=== PATIENT | female | born 1990 | race Two or more races ===

== ENCOUNTER 2017-04-04 13:02 | Emergency (ER) | payer SELFPAY ==
[~2017-04-04] VITALS: Ht 160 cm; Wt 90.7 kg
[2017-04-04 13:21] VITALS: BP 153/87
[2017-04-04] MEDS ORDERED: cefTRIAXone SOD 1,000 MG VL IM ONE (15:30)
== END 2017-04-04 15:42 | disposition home or self-care (01) ==
LOC: ER 13:02
DX: H66.91 Otitis media, unspecified, right ear (principal); J03.90 Acute tonsillitis, unspecified
CPT/HCPCS: 96372; 99283; J0696